=== PATIENT | female | born 2000 | race Asian ===

== ENCOUNTER 2023-02-08 10:19 | Emergency (ER) | payer BC, OTHER ==
[2023-02-08 11:35] LABS: BASOPHILS % (AUTO) 0.5 %; EOSINOPHILS # (AUTO) 0.1 10^3/uL (0.0-0.7); EOSINOPHILS % (AUTO) 2.1 %; HCT - HEMATOCRIT 39.7 % (37.0-47.0); HGB - HEMOGLOBIN 12.9 g/dL (12.0-16.0); LYMPHOCYTES % (AUTO) 15.2 %; MEAN CORPUSCULAR HEMOGLOBIN 29.5 pg (27.0-31.0); MEAN CORPUSCULAR HGB CONC 32.5 g/dL (32.0-36.0); MEAN CORPUSCULAR VOLUME 90.8 fL (81.0-99.0); MEAN PLATELET VOLUME 9.9 fL (7.9-10.8); MONOCYTES # (AUTO) 0.3 10^3/uL (0.0-1.0); MONOCYTES % (AUTO) 4.8 %; NEUTROPHILS # (AUTO) 5.1 10^3/uL (1.5-6.6); NEUTROPHILS % (AUTO) 77.1 %; PLT - PLATELET COUNT 271 10^3/uL (130-450); RED BLOOD COUNT 4.37 10^6/uL (4.20-5.40); RED CELL DISTRIBUTION WIDTH 12.7 % (12.0-15.0); WHITE BLOOD COUNT 6.7 x10^3/uL (4.8-10.8)
[2023-02-08 11:49] LABS: ALBUMIN 4.9 g/dL (3.2-5.5); ALBUMIN/GLOBULIN RATIO 1.6 (1.0-2.2); ALKALINE PHOSPHATASE 40 IU/L (42-121); ALT ALANINE AMINOTRANSFERASE 31 IU/L (10-60); AST ASPARTATE AMINOTRANSFERASE 19 IU/L (10-42); BILIRUBIN,TOTAL 0.5 mg/dL (0.2-1.0); BUN - BLOOD UREA NITROGEN 12 mg/dL (6-20); CALCIUM 9.8 mg/dL (8.5-10.3); CARBON DIOXIDE - CO2 22 mmol/L (21-32); CHLORIDE 108 mmol/L (101-111); CK- CREATINE KINASE 53 IU/L (30-223); CREATININE 0.7 mg/dL (0.6-1.3); ETOH - ETHANOL < 10.0 mg/dL; GFR - MDRD 103 (>89); GLUCOSE 130 mg/dL (74-104); LIPASE 23 U/L (11-82); POTASSIUM 3.5 mmol/L (3.5-4.5); SODIUM 139 mmol/L (135-145); TOTAL PROTEIN 7.9 g/dL (6.4-8.9)
[2023-02-08 11:51] LABS: ACETAMINOPHEN < 0.1 ug/mL; SALICYLATE < 1.5 mg/dL
--- NOTE | 2023-02-08 12:03 | ED Physician Documentation ---
PD HPI MHE - Stated complaint Stated Complaint: SI - Chief complaint Chief Complaint: MHE - History obtained from History obtained from: Patient - History of Present Illness Primary symptom: Depression Pain level max: 0 Pain level now: 0 Contributing factors: No: Substance abuse - ETOH, Substance abuse - drugs Similar symptoms before: Has not had sx before Recently seen: Not recently seen - Additional information Additional information: Patient is a 22-year-old female who presents to the emergency department stating that she has been feeling depressed and has had suicidal thoughts. She does not feel that she wants to harm herself. She states that she does not want to disappoint her parents and if she killed herself it would make her parents sad. Apparently she is going through a break-up with a boyfriend. She is not on any medications. Does not have a therapist. Denies any possibility of . Nothing makes it better or worse. Has never been hospitalized for depression or other mental health issues before. Review of Systems Constitutional: denies: Fever, Chills GI: denies: Vomiting, Diarrhea : denies: Now EGA Neurologic: denies: Generalized weakness, Focal weakness, Numbness PD PAST MEDICAL HISTORY - Past Medical History Past Medical History: No Cardiovascular: None Respiratory: None Neuro: None Endocrine/Autoimmune: None GI: None HAND MODEL: None : None HEENT: None Musculoskeletal: None Derm: None - Past Surgical History Past Surgical History: No - Present Medications Home Medications: Ambulatory Orders Medication Instructions Recorded Confirmed No Known Home Medications 02/08/23 02/08/23 - Allergies Allergies/Adverse Reactions: Allergies Allergy/AdvReac Type Severity Reaction Status Date / Time No Known Drug Allergies Allergy Verified 02/08/23 10:47 - Social History Does the pt smoke?: No Smoking Status: Never smoker Does the pt drink ETOH?: No Does the pt have substance abuse?: Yes Substance Use and Type: Marijuana PD ED PE NORMAL - Vitals Vital signs reviewed: Yes - General General: Alert and oriented X 3, No acute distress - HEENT HEENT: PERRL, Moist mucous membranes - Neck Neck: Supple, no meningeal sign - Cardiac Cardiac: RRR, Strong equal pulses - Respiratory Respiratory: No respiratory distress, Clear bilaterally - Abdomen Abdomen: Soft, Non tender, Non distended - Derm Derm: Warm and dry - Extremities Extremities: No edema - Neuro Neuro: Alert and oriented X 3 - Psych Psych: Normal mood, Normal affect Results - Vitals Vitals: Vital Signs - 24 hr 02/08/23 02/08/23 10:34 16:58 Temperature 36.4 C L Heart Rate 75 118 H Respiratory 14 20 Rate Blood Pressure 134/79 H 131/87 H O2 Saturation 97 100 Oxygen O2 Source Room air - EKG (time done) 1802 EKG releavant findings:: EKG personally interpreted by author of this note. Relevant findings are: Rate: Rate (enter#) (75) Rhythm: NSR Pauline: Normal Intervals: Normal FL QRS: Normal Ischemia: Normal ST segments - Labs Labs: Laboratory Tests 02/08/23 02/08/23 02/08/23 11:30 11:30 12:13 WBC 6.7 RBC 4.37 Hgb 12.9 Hct 39.7 MCV 90.8 MCH 29.5 MCHC 32.5 RDW 12.7 Plt Count 271 MPV 9.9 Neut # (Auto) 5.1 Lymph # (Auto) 1.0 L [place] # (Auto) 0.3 Eos # (Auto) 0.1 Baso # (Auto) 0.0 Absolute Nucleated RBC 0.00 Nucleated RBC % 0.0 Sodium 139 Potassium 3.5 Chloride 108 Carbon Dioxide 22 Anion Gap 9.0 BUN 12 Creatinine 0.7 Estimated GFR (MDRD) 103 Glucose 130 H Calcium 9.8 Magnesium 2.0 Total Bilirubin 0.5 AST 19 ALT 31 Alkaline Phosphatase 40 L Total Creatine Kinase 53 Total Protein 7.9 Albumin 4.9 Globulin 3.0 Albumin/Globulin Ratio 1.6 Lipase 23 TSH 1.24 Urine Color DARK YELLOW Urine Clarity CLEAR Urine pH 5.5 Ur Specific [place] >=1.030 H Urine Protein NEGATIVE Urine Glucose (UA) NEGATIVE Urine Ketones 15 H Urine Occult Blood TRACE-INTA Urine Nitrite NEGATIVE Urine Bilirubin NEGATIVE Urine Urobilinogen 0.2 (NORMAL) Ur Leukocyte Esterase TRACE H Urine RBC 0-5 Urine WBC 4-5 Ur Squamous Epith Cells MOD Squamous H Urine Bacteria Moderate H Ur Microscopic Review INDICATED Urine Culture Comments NOT INDICATED Urine HCG, Qual NEGATIVE Salicylates < 1.5 Urine Opiates Screen Ur Oxycodone Screen Urine Methadone Screen Ur Propoxyphene Screen Acetaminophen < 0.1 Ur Barbiturates Screen Ur Tricyclics Screen Ur Phencyclidine Scrn Ur Amphetamine Screen U Methamphetamines Scrn U Benzodiazepines Scrn Urine Cocaine Screen U Cannabinoids Screen Ethyl Alcohol < 10.0 SARS-CoV-2 (PCR) 02/08/23 02/08/23 12:13 16:15 WBC RBC Hgb Hct MCV MCH MCHC RDW Plt Count MPV Neut # (Auto) Lymph # (Auto) [place] # (Auto) Eos # (Auto) Baso # (Auto) Absolute Nucleated RBC Nucleated RBC % Sodium Potassium Chloride Carbon Dioxide Anion Gap BUN Creatinine Estimated GFR (MDRD) Glucose Calcium Magnesium Total Bilirubin AST ALT Alkaline Phosphatase Total Creatine Kinase Total Protein Albumin Globulin Albumin/Globulin Ratio Lipase TSH Urine Color Urine Clarity Urine pH Ur Specific [place] Urine Protein Urine Glucose (UA) Urine Ketones Urine Occult Blood Urine Nitrite Urine Bilirubin Urine Urobilinogen Ur Leukocyte Esterase Urine RBC Urine WBC Ur Squamous Epith Cells Urine Bacteria Ur Microscopic Review Urine Culture Comments Urine HCG, Qual Salicylates Urine Opiates Screen NEGATIVE Ur Oxycodone Screen NEGATIVE Urine Methadone Screen NEGATIVE Ur Propoxyphene Screen NEGATIVE Acetaminophen Ur Barbiturates Screen NEGATIVE Ur Tricyclics Screen NEGATIVE Ur Phencyclidine Scrn NEGATIVE Ur Amphetamine Screen NEGATIVE U Methamphetamines Scrn NEGATIVE U Benzodiazepines Scrn NEGATIVE Urine Cocaine Screen NEGATIVE U Cannabinoids Screen NEGATIVE Ethyl Alcohol SARS-CoV-2 (PCR) NOT DETECTED PD Medical Decision Making - ED course Complexity details: reviewed results, re-evaluated patient, considered differential, d/w patient, d/w business transformation consultant ED course: The patient is medically clear for psychiatric care. She was seen initially by social work, the patient would not contract for safety with social work. She did not want to engage with outpatient mental health services. She also did not want to be admitted. Therefore the DCR was dispatched. Patient placed on an involuntary hold by DCR. She is accepted to [facility], by provider at [facility]. The patient is transferred for further care. This document was made in part using voice recognition software. While efforts are made to proofread this document, sound alike and grammatical errors may occur. Departure - Departure Disposition: 65 Psych Hosp/Unit DC/Xfer Clinical Impression: Suicidal ideation Depression Qualifiers: Depression Type: unspecified Qualified Code(s): F32.A - Depression, unspecified Condition: Stable Forms: PCP List
[2023-02-08 12:05] LABS: THYROID STIMULATING HORMONE 1.24 uIU/mL (0.34-5.60)
[2023-02-08 13:03] LABS: MUDS CUTOFF CONCENTRATIONS CUTOFF CONC BELOW:
[2023-02-08 13:20] LABS: GLUCOSE, URINE (UA) NEGATIVE (NEGATIVE); KETONES,URINE (UA) 15 mg/dL (NEGATIVE); LEUKOCYTE ESTERASE, URINE TRACE (NEGATIVE); NITRITE,URINE NEGATIVE (NEGATIVE); OCCULT BLOOD,URINE TRACE-INTA (NEGATIVE); PH,URINE 5.5 PH (5.0-7.5); PROTEIN,URINE NEGATIVE (NEGATIVE); UROBILINOGEN,URINE 0.2 (NORMAL) E.U./dL (NORMAL)
[2023-02-08 13:26] LABS: AMPHETAMINE SCREEN,URINE NEGATIVE (NEGATIVE); BARBITURATE SCREEN,UR NEGATIVE (NEGATIVE); BENZODIAZEPINES SCREEN, URINE NEGATIVE (NEGATIVE); COCAINE SCREEN URINE NEGATIVE (NEGATIVE); METHADONE SCREEN, URINE NEGATIVE (NEGATIVE); METHAMPHETAMINES SCREEN, URINE NEGATIVE (NEGATIVE); OPIATE SCREEN, URINE NEGATIVE (NEGATIVE); OXYCODONE SCREEN, URINE NEGATIVE (NEGATIVE); PROPOXYPHENE SCREEN, URINE NEGATIVE (NEGATIVE); THC CANNABINOID SCREEN, URINE NEGATIVE (NEGATIVE); TRICYCLIC ANTIDEPRESSANT,URINE NEGATIVE (NEGATIVE)
[2023-02-08 13:27] LABS: BILIRUBIN,URINE NEGATIVE (NEGATIVE); CLARITY,URINE CLEAR (CLEAR); HCG UR QUAL NEGATIVE; ICTOTEST,URINE NEGATIVE
[2023-02-08 13:35] LABS: BACTERIA,URINE Moderate /HPF (None Seen); RBC,URINE 0-5 /HPF (0-5); SQUAMOUS EPITHELIAL CELL,UR MOD Squamous (<= Few)
[2023-02-08] MEDS ORDERED: OLANZapine ODT 5 MG TABLET TL STA (16:34)
[2023-02-08 16:59] VITALS: BP 131/87; O2SAT 100
== END 2023-02-08 19:20 ==
LOC: ED 10:19
DX: R45.851 Suicidal ideations (principal); F32.A Depression, unspecified; Z20.822 Contact with and (suspected) exposure to COVID-19
CPT/HCPCS: 36415; 80053; 80306; 80307; 80320; 80329; 81001; 81003; 81025; 82550; 83690; 83735; 84443; 85025; 87086; 93005; 99283; 99285

== ENCOUNTER 2023-08-17 11:24 | Emergency (ER) | payer BC ==
--- NOTE | 2023-08-17 11:51 | ED Physician Documentation ---
PD HPI FEMALE - Stated complaint Stated Complaint: - History obtained from History obtained from: Patient (using zweitgeist interpreter deaf tablet) - Additional information Additional information: About 1 week vaginal itchiness and yellow/greeen discharge after protected sex wth condom. 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 : None HEENT: None Musculoskeletal: None Derm: None - Past Surgical History Past Surgical History: No - Present Medications Home Medications: Ambulatory Orders Medication Instructions Recorded Confirmed Fluconazole 150 mg PO ONCE #1 tablet 08/17/23 Fluoxetine HCl [Prozac] 20 mg PO DAILY 08/17/23 08/17/23 metroNIDAZOLE [Flagyl] 500 mg PO BID 7 Days #14 tablet 08/17/23 - Allergies Allergies/Adverse Reactions: Allergies Allergy/AdvReac Type Severity Reaction Status Date / Time No Known Drug Allergies Allergy Verified 08/17/23 11:55 - Social History Does the pt smoke?: No Smoking Status: Never smoker Does the pt drink ETOH?: No Does the pt have substance abuse?: Yes PD ED PE NORMAL - Vitals Vital signs reviewed: Yes - General General: Alert and oriented X 3, No acute distress - Abdomen Abdomen: Non tender - Female Female : Diamond Finishing Supervisor present (Ashley Kamraa RN), Other (Yellow dischg in vault. No CMT. External nl.) - Psych Psych: Normal mood, Normal affect Results - Vitals Vitals: Vital Signs - 24 hr 08/17/23 11:46 Temperature 36.3 C L Heart Rate 82 Respiratory 16 Rate Blood Pressure 111/67 O2 Saturation 98 Oxygen O2 Source Room air - Labs Labs: Microbiology 08/17/23 12:25 Wet Prep - Final Vaginal Laboratory Tests 08/17/23 08/17/23 12:25 12:25 C. glabrata (PCR) NEGATIVE C. krusei (PCR) NEGATIVE Brynn species DNA POSITIVE A Chlam trachomat DNA PCR NEGATIVE N.gonorrhoeae DNA (PCR) NEGATIVE T. vaginalis (PCR) NEGATIVE TNP Bact Vaginosis (PCR) NEGATIVE PD Medical Decision Making - ED course ED course: 23-year-old woman with probably combination of BV and yeast treated with Flagyl and Diflucan. Departure - Departure Disposition: 01 Home, Self Care Clinical Impression: Bacterial vaginitis, Vaginal candidiasis Condition: Good Record reviewed to determine appropriate education?: Yes Instructions: ED Vaginosis Bacterial, ED Vaginal Infec Fungal Brynn Follow-Up: [facility] [Provider Group] Prescriptions: metroNIDAZOLE [Flagyl] 500 mg PO BID 7 Days #14 tablet Fluconazole 150 mg PO ONCE #1 tablet Comments: You have some yeast and what is called bacterial vaginosis. Neither of these are sexually transmitted diseases. There is a test for STD is pending and we will call you if positive. For Pap smear and HPV testing please follow-up with our women's clinic. The number is on this form. Forms: PCP List Discharge Date/Time: 08/17/23 13:14
[2023-08-17 11:57] VITALS: BP 111/67; O2SAT 98
[2023-08-17 16:07] LABS: BACTERIAL VAGINOSIS DNA NEGATIVE (NEGATIVE); CANDIDA GLABRATA DNA NEGATIVE (NEGATIVE); CANDIDA GROUP DNA POSITIVE (NEGATIVE); CANDIDA KRUSEI DNA NEGATIVE (NEGATIVE); TRICHOMONAS VAGINALIS DNA NEGATIVE (NEGATIVE)
[2023-08-17 19:11] LABS: CHLAMYDIA TRACHOMATIS DNA NEGATIVE (NEGATIVE); NEISSERIA GONORRHOEAE DNA NEGATIVE (NEGATIVE)
== END 2023-08-17 13:14 | disposition home or self-care (01) ==
LOC: ED 11:24
DX: N76.0 Acute vaginitis (principal); B37.31 Acute candidiasis of vulva and vagina
CPT/HCPCS: 81514; 87210; 87491; 87591; 87661; 99283

== ENCOUNTER 2023-08-30 12:05 | Emergency (ER) | payer BC ==
[2023-08-30 12:30] VITALS: BP 104/67; O2SAT 97
--- NOTE | 2023-08-30 12:37 | ED Physician Documentation ---
History of Present Illness - Stated complaint Stated Complaint: - Chief complaint Chief Complaint: General - History obtained from History obtained from: Patient - History of Present Illness Pain level max: 0 Pain level now: 0 - Additonal information Additional information: Patient is a 23-year-old female who was seen here her on August 16 for vaginal itching and discharge. Had a pelvic examination at that time that was negative for STD testing but positive for Brynn. She was treated with Diflucan and Flagyl. She states that her symptoms improved but after she stopped the medication the symptoms returned about 2 days ago. She states that the discharge currently is clear. She states that there is itching. She is not hav ing abdominal pain or back pain. No STD exposure that she is aware of. Nothing makes it better or worse. No fevers. No chills. No cough. No congestion. Denies any possibility of . No dysuria or urinary frequency. Review of Systems Constitutional: denies: Fever, Chills Nose: denies: Rhinorrhea / runny nose, Congestion Respiratory: denies: Cough GI: denies: Nausea, Vomiting, Diarrhea Skin: denies: Rash Musculoskeletal: denies: Neck pain, Back pain Neurologic: denies: Headache PD PAST MEDICAL HISTORY - Past Medical History Past Medical History: Yes Cardiovascular: None Respiratory: None Neuro: None Endocrine/Autoimmune: None GI: None BOW MAKER: None : None HEENT: None Psych: Depression Musculoskeletal: None Derm: None - Past Surgical History Past Surgical History: No - Present Medications Home Medications: Ambulatory Orders Medication Instructions Recorded Confirmed Fluoxetine HCl [Prozac] 20 mg PO DAILY 08/17/23 08/30/23 Fluconazole 150 mg PO DAILY #2 tab 08/30/23 metroNIDAZOLE [Flagyl] 500 mg PO BID 7 Days #14 tablet 08/30/23 - Allergies Allergies/Adverse Reactions: Allergies Allergy/AdvReac Type Severity Reaction Status Date / Time No Known Drug Allergies Allergy Verified 08/30/23 12:19 - Social History Does the pt smoke?: No Smoking Status: Never smoker Does the pt drink ETOH?: Yes Does the pt have substance abuse?: No - Immunizations Immunizations are current?: Yes - POLST Patient has POLST: No PD ED PE NORMAL - Vitals Vital signs reviewed: Yes - General General: Alert and oriented X 3, No acute distress - HEENT HEENT: Moist mucous membranes - Neck Neck: Supple, no meningeal sign - Cardiac Cardiac: RRR, Strong equal pulses - Respiratory Respiratory: No respiratory distress, Clear bilaterally - Abdomen Abdomen: Soft, Non tender, Non distended - Female Female : Pt declined (patient does not want a pelvic exam today, would like to self swab) - Back Back: No CVA TTP, No spinal TTP - Derm Derm: Warm and dry - Extremities Extremities: No edema, No calf tenderness / cord - Neuro Neuro: Alert and oriented X 3 - Psych Psych: Normal mood, Normal affect Results - Vitals Vitals: Vital Signs - 24 hr 08/30/23 12:21 Temperature 36.4 C L Heart Rate 77 Respiratory 16 Rate Blood Pressure 104/67 O2 Saturation 97 Oxygen O2 Source Room air - Labs Labs: Laboratory Tests 08/30/23 12:46 Urine Color YELLOW Urine Clarity CLEAR Urine pH 6.0 Ur Specific [place] 1.025 Urine Protein NEGATIVE Urine Glucose (UA) NEGATIVE Urine Ketones NEGATIVE Urine Occult Blood SMALL H Urine Nitrite NEGATIVE Urine Bilirubin NEGATIVE Urine Urobilinogen 0.2 (NORMAL) Ur Leukocyte Esterase NEGATIVE Urine RBC 0-5 Urine WBC 0-3 Ur Squamous Epith Cells FEW Squamous Urine Bacteria Few Urine Mucus Few Strands Ur Microscopic Review INDICATED Urine Culture Comments NOT INDICATED Urine HCG, Qual NEGATIVE PD Medical Decision Making - ED course Complexity details: reviewed results, re-evaluated patient, considered differential, d/w patient ED course: 23-year-old female with what appears to be likely recurrent bacterial vaginitis/candidal infection. Refuses a pelvic examination here. She did perform another self swab. We will treat presumptively with 2 separate doses of Diflucan and Flagyl. Will have her follow-up with gynecology for further care. Patient is well-appearing, nontoxic. Afebrile. Abdomen is soft, nontender nondistended on serial exam. Patient denies any STD exposure. Gonorrhea and Chlamydia testing were sent. Patient counseled regarding signs and symptoms for which I believe and urgent re-evaluation would be necessary. Patient with good understanding of and agreement to plan and is comfortable going home at this time This document was made in part using voice recognition software. While efforts are made to proofread this document, sound alike and grammatical errors may occur. Departure - Departure Disposition: 01 Home, Self Care Clinical Impression: Bacterial vaginitis, Vaginal candidiasis Condition: Good Instructions: ED Vaginosis Bacterial, ED Vaginal Infec Fungal Brynn Follow-Up: your,doctor in 1 week [Other] [facility] [Provider Group] Prescriptions: metroNIDAZOLE [Flagyl] 500 mg PO BID 7 Days #14 tablet Fluconazole 150 mg PO DAILY #2 tab Comments: Your prescriptions were sent to [facility] in [place]. Please follow-up with your doctor for further care. Please take the medications as prescribed. The fluconazole you will take today and then take another dose in 3 days. Forms: PCP List Discharge Date/Time: 08/30/23 13:12
[2023-08-30 12:57] LABS: BILIRUBIN,URINE NEGATIVE (NEGATIVE); GLUCOSE, URINE (UA) NEGATIVE (NEGATIVE); KETONES,URINE (UA) NEGATIVE (NEGATIVE); LEUKOCYTE ESTERASE, URINE NEGATIVE (NEGATIVE); NITRITE,URINE NEGATIVE (NEGATIVE); OCCULT BLOOD,URINE SMALL (NEGATIVE); PROTEIN,URINE NEGATIVE (NEGATIVE); UROBILINOGEN,URINE 0.2 (NORMAL) E.U./dL (NORMAL)
[2023-08-30 13:01] LABS: CLARITY,URINE CLEAR (CLEAR)
[2023-08-30 13:02] LABS: HCG UR QUAL NEGATIVE
[2023-08-30 13:21] LABS: BACTERIA,URINE Few /HPF (None Seen); MUCUS,URINE Few Strands; RBC,URINE 0-5 /HPF (0-5); SQUAMOUS EPITHELIAL CELL,UR FEW Squamous (<= Few); WBC,URINE 0-3 /HPF (0-5)
[2023-08-30 15:10] LABS: CHLAMYDIA TRACHOMATIS DNA NEGATIVE (NEGATIVE); NEISSERIA GONORRHOEAE DNA NEGATIVE (NEGATIVE)
[2023-08-30 15:11] LABS: BACTERIAL VAGINOSIS DNA NEGATIVE (NEGATIVE); CANDIDA GLABRATA DNA NEGATIVE (NEGATIVE); CANDIDA GROUP DNA NEGATIVE (NEGATIVE); CANDIDA KRUSEI DNA NEGATIVE (NEGATIVE); TRICHOMONAS VAGINALIS DNA NEGATIVE (NEGATIVE)
== END 2023-08-30 13:12 | disposition home or self-care (01) ==
LOC: ED 12:05
DX: N76.0 Acute vaginitis (principal); B37.31 Acute candidiasis of vulva and vagina
CPT/HCPCS: 81001; 81003; 81025; 81514; 87086; 87491; 87591; 87661; 99283

== ENCOUNTER 2023-09-17 14:09 | Outpatient (CLI) | payer BC ==
--- NOTE | 2023-09-17 19:25 | Ultrasound Report ---
PROCEDURE: Pelvic w/Transvaginal INDICATIONS: PELVIC PAIN TECHNIQUE: Transabdominal/transvaginal ultrasound of the pelvis was obtained. Endovaginal scanning wa s necessary due to incomplete visualization of the adnexal and endometrial structures by transabdomin al scanning. COMPARISON: None. FINDINGS: Uterine size: Uterus measures 6.9 x 3.6 x 4.2 cm, and is anteverted. Myometrium: The myometrium is heterogenous Endometrium: The endometrium measures 6 mm in combined thickness. Right ovary: The right ovary measures 1.8 x 1.4 x 1.4 cm. Calculated ovarian volume 2.0 cc. Left ovary: The left ovary measures 2.0 x 2.8 x 1.0 cm. Calculated ovarian volume 0.8 cc. Other: No pathologic free abdominal or pelvic fluid. IMPRESSION: Unremarkable ultrasound of the pelvis Reviewed by: Mark Moreland MD on 09/17/2023 6:24 PM KO Approved by: Mark Moreland MD on 09/17/2023 6:24 PM AKDT Station ID: [id number]
== END 2023-09-17 14:10 | disposition home or self-care (01) ==
LOC: DI 14:09
PROVIDERS: ATTEND Obstetrics & Gynecology
DX: R10.2 Pelvic and perineal pain (principal)

== ENCOUNTER 2023-10-20 08:00 | Outpatient (CLI) | payer BC ==
[2023-10-20 19:58] LABS: BACTERIAL VAGINOSIS DNA NEGATIVE (NEGATIVE); CANDIDA GLABRATA DNA NEGATIVE (NEGATIVE); CANDIDA GROUP DNA POSITIVE (NEGATIVE); CANDIDA KRUSEI DNA NEGATIVE (NEGATIVE); TRICHOMONAS VAGINALIS DNA NEGATIVE (NEGATIVE)
[2023-10-20 21:18] LABS: CHLAMYDIA TRACHOMATIS DNA NEGATIVE (NEGATIVE); NEISSERIA GONORRHOEAE DNA NEGATIVE (NEGATIVE)
== END 2023-10-20 23:59 | disposition home or self-care (01) ==
LOC: LAB.WC 08:00
PROVIDERS: ATTEND Obstetrics & Gynecology
DX: N89.8 Other specified noninflammatory disorders of vagina (principal)
CPT/HCPCS: 81514; 87491; 87591; 87661

== ENCOUNTER 2023-11-16 15:59 | Emergency (ER) | payer BC ==
[2023-11-16 16:10] VITALS: BP 109/74; O2SAT 100
[2023-11-16 16:25] LABS: BASOPHILS % (AUTO) 0.4 %; EOSINOPHILS # (AUTO) 0.3 10^3/uL (0.0-0.7); EOSINOPHILS % (AUTO) 4.9 %; HCT - HEMATOCRIT 39.1 % (37.0-47.0); HGB - HEMOGLOBIN 12.6 g/dL (12.0-16.0); LYMPHOCYTES # (AUTO) 1.4 10^3/uL (1.5-3.5); LYMPHOCYTES % (AUTO) 25.7 %; MEAN CORPUSCULAR HEMOGLOBIN 29.4 pg (27.0-31.0); MEAN CORPUSCULAR HGB CONC 32.2 g/dL (32.0-36.0); MEAN CORPUSCULAR VOLUME 91.4 fL (81.0-99.0); MEAN PLATELET VOLUME 9.7 fL (7.9-10.8); MONOCYTES # (AUTO) 0.4 10^3/uL (0.0-1.0); MONOCYTES % (AUTO) 7.2 %; NEUTROPHILS # (AUTO) 3.4 10^3/uL (1.5-6.6); NEUTROPHILS % (AUTO) 61.6 %; PLT - PLATELET COUNT 284 10^3/uL (130-450); RED BLOOD COUNT 4.28 10^6/uL (4.20-5.40); RED CELL DISTRIBUTION WIDTH 12.9 % (12.0-15.0); WHITE BLOOD COUNT 5.6 x10^3/uL (4.8-10.8)
[2023-11-16 16:31] LABS: PARTIAL THROMBOPLASTIN TIME 26.8 secs (24.9-33.3)
[2023-11-16 16:36] LABS: INR 1.1 (0.8-1.2); PT - PROTHROMBIN TIME 12.5 secs (9.9-12.6)
[2023-11-16 16:42] LABS: ALBUMIN 4.5 g/dL (3.2-5.5); ALBUMIN/GLOBULIN RATIO 1.5 (1.0-2.2); BILIRUBIN,TOTAL 0.3 mg/dL (0.2-1.0); CALCIUM 9.5 mg/dL (8.5-10.3); CREATININE 0.7 mg/dL (0.6-1.3); POTASSIUM 3.5 mmol/L (3.5-4.5); TOTAL PROTEIN 7.6 g/dL (6.4-8.9)
--- NOTE | 2023-11-16 16:59 | ED Physician Documentation ---
History of Present Illness - Stated complaint Stated Complaint: BRUISES - Chief complaint Chief Complaint: General - History obtained from History obtained from: Patient - History of Present Illness Pain level max: 0 Pain level now: 0 - Additonal information Additional information: Patient is a 23-year-old female who presents to the emergency department stating that she has bruise easily for her whole life and has noticed that there are bruises on her legs over the past few months. She states she does not know where the bruises come from. Occasionally gets bruises on her back and sides as well. She has never been seen by a doctor for this. She denies any easy bleeding. Denies any extended menstrual periods. Denies any bleeding with brushing her teeth. 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 : None HEENT: None Psych: Depression Musculoskeletal: None Derm: None - Past Surgical History Past Surgical History: No - Present Medications Home Medications: Ambulatory Orders Medication Instructions Recorded Confirmed Levonorgestrel/Ethin.estradiol 28 tab PO DAILY 11/16/23 [Kurvelo-28 Tablet] - Allergies Allergies/Adverse Reactions: Allergies Allergy/AdvReac Type Severity Reaction Status Date / Time No Known Drug Allergies Allergy Verified 11/16/23 16:09 - Social History Does the pt smoke?: No Smoking Status: Never smoker Does the pt drink ETOH?: Yes Does the pt have substance abuse?: No - Immunizations Immunizations are current?: Yes - POLST Patient has POLST: No PD ED PE NORMAL - Vitals Vital signs reviewed: Yes - General General: Alert and oriented X 3, No acute distress - Cardiac Cardiac: RRR - Respiratory Respiratory: No respiratory distress, Clear bilaterally - Abdomen Abdomen: Soft, Non tender, Non distended - Derm Derm: Warm and dry - Extremities Extremities: Other (Small healing ecchymoses to the bilateral shins.) - Neuro Neuro: Alert and oriented X 3 Results - Vitals Vitals: Vital Signs - 24 hr 11/16/23 16:02 Temperature 36.4 C L Heart Rate 74 Respiratory 16 Rate Blood Pressure 109/74 O2 Saturation 100 Oxygen O2 Source Room air - Labs Labs: Laboratory Tests 11/16/23 11/16/23 11/16/23 16:19 16:19 16:19 WBC 5.6 RBC 4.28 Hgb 12.6 Hct 39.1 MCV 91.4 MCH 29.4 MCHC 32.2 RDW 12.9 Plt Count 284 MPV 9.7 Neut # (Auto) 3.4 Lymph # (Auto) 1.4 [place] # (Auto) 0.4 Eos # (Auto) 0.3 Baso # (Auto) 0.0 Absolute Nucleated RBC 0.00 Nucleated RBC % 0.0 PT 12.5 INR 1.1 APTT 26.8 Sodium 138 Potassium 3.5 Chloride 108 Carbon Dioxide 23 Anion Gap 7.0 BUN 10 Creatinine 0.7 Estimated GFR (MDRD) 102 Glucose 105 H Calcium 9.5 Total Bilirubin 0.3 AST 14 ALT 18 Alkaline Phosphatase 50 Total Protein 7.6 Albumin 4.5 Globulin 3.1 Albumin/Globulin Ratio 1.5 PD Medical Decision Making - ED course Complexity details: considered differential, d/w patient ED course: Patient complains of easy bruising for her entire life, does not recall how she obtained the bruises on her legs. Do not appear abnormal. No evidence of petechiae. No abnormalities on laboratory testing. No emergency medical condition at this time. Recommend that she follow-up with her doctor for further evaluation. Patient counseled regarding signs and symptoms for which I believe and urgent re-evaluation would be necessary. Patient with good understanding of and agreement to plan and is comfortable going home at this time This document was made in part using voice recognition software. While efforts are made to proofread this document, sound alike and grammatical errors may occur. Departure - Departure Disposition: 01 Home, Self Care Clinical Impression: Bruising Condition: Good Instructions: ED Contusion Soft Tissue Follow-Up: [facility] [Provider Group] [facility] [Provider Group] Primary[facility] [place] [Provider Group] [facility] [Provider Group] Comments: As we discussed all of your clotting factors and blood counts are normal. Your platelets are normal, which help in clotting. Your coagulation studies are normal, and your chemistries including liver function tests are normal. If you have further concerns, would recommend you follow-up with a primary care provider for further testing. Forms: PCP List Discharge Date/Time: 11/16/23 17:06
== END 2023-11-16 17:06 | disposition home or self-care (01) ==
LOC: ED 15:59
DX: R23.3 Spontaneous ecchymoses (principal)
CPT/HCPCS: 36415; 80053; 85025; 85610; 85730; 99283

== ENCOUNTER 2023-12-24 08:00 | Outpatient (CLI) | payer BC ==
[2023-12-27 11:52] LABS: BACTERIAL VAGINOSIS DNA NEGATIVE (NEGATIVE); CANDIDA GLABRATA DNA NEGATIVE (NEGATIVE); CANDIDA GROUP DNA NEGATIVE (NEGATIVE); CANDIDA KRUSEI DNA NEGATIVE (NEGATIVE); TRICHOMONAS VAGINALIS DNA NEGATIVE (NEGATIVE)
== END 2023-12-24 23:59 | disposition home or self-care (01) ==
LOC: LAB.WC 08:00
PROVIDERS: ATTEND Obstetrics & Gynecology
DX: L29.8 Other pruritus (principal)
CPT/HCPCS: 81514

== ENCOUNTER 2024-02-16 16:08 | Emergency (ER) | payer BC ==
[2024-02-16 16:23] VITALS: O2SAT 98
--- NOTE | 2024-02-16 16:49 | ED Physician Documentation ---
<Rosita Toure Inez - Last Filed: 02/16/24 16:46> History of Present Illness - Stated complaint Stated Complaint: R WRIST INJ - Chief complaint Chief Complaint: Ext Problem - Additonal information Additional information: Patient is a 23-year-old male presenting to the emergency department with right wrist pain symptoms have been going on for about a month now. 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: No - Immunizations Immunizations are current?: Yes - POLST Patient has POLST: No Departure - Departure Disposition: 01 Home, Self Care Clinical Impression: Fracture of ulnar styloid Qualifiers: Encounter type: initial encounter Fracture type: closed Fracture alignment: nondisplaced Laterality: right Qualified Code(s): S52.614A - Nondisplaced fracture of right ulna styloid process, initial encounter for closed fracture Condition: Good Instructions: ED Fx [place] Upper Ext Incom Follow-Up: [facility] [Provider Group] Comments: You do have a minor fracture of your wrist, of the ulnar styloid. And it is probably not healing well since it has never been immobilized. We have placed you in a fiberglass splint, keep it on and dry and follow-up with our orthopedic surgeons, call tomorrow for an appointment in about a week. Return for new or worsening symptoms. Tylenol and/or ibuprofen as needed for pain. Forms: PCP List, Activity restrictions <Alex Butcher - Last Filed: 02/16/24 16:52> History of Present Illness - Additonal information Additional information: She fell 2 months ago and has persistent pain on the ulnar side of the left wrist. It hurts most if she is picking something up arms all along yeah here to PD ED PE NORMAL - Vitals Vital signs reviewed: Yes - General General: Alert and oriented X 3, No acute distress - Extremities Extremities: Other (Mild tenderness over the distal ulna with good range of motion. No deformity. Normal distal neurovascular function.) - Neuro Neuro: Alert and oriented X 3 Results - Vitals Vitals: Vital Signs - 24 hr 02/16/24 16:12 Temperature 36.5 C Heart Rate 80 Respiratory 18 Rate Blood Pressure 111/69 O2 Saturation 98 Oxygen O2 Source Room air - Rads (name of study) Right wrist x-ray demonstrates an ulnar styloid fracture Relevant Findings:: EMP independent interpretation of test Procedures - Splint (location) - Minor r WRIST Splint applied by: Tech Type of splint: Fiberglass, Short arm, Ulnar gutter Other: Patient tolerated well, No complications, Neurovascular intact Departure - Departure Record reviewed to determine appropriate education?: Yes
[2024-02-16 17:16] VITALS: BP 128/68
--- NOTE | 2024-02-16 17:23 | XRAY Report ---
Wrist 3+V RT HISTORY: 23 years of age, pain/trauma TECHNIQUE: Wrist 3+V RT COMPARISON: None. FINDINGS/IMPRESSION: Minimally displaced ulnar styloid fracture, favoring acute. Sclerosis with cortical irregularity at t he scaphoid waist on the scaphoid view, concerning for nondisplaced fracture. Recommend further evalu ation with CT or MRI. Joint spaces are well-maintained. Reviewed by: Louisa Blas MD on 02/16/2024 5:22 PM PDT Approved by: Louisa Blas MD on 02/16/2024 5:22 PM PDT Station ID: [id number]
== END 2024-02-16 17:09 | disposition home or self-care (01) ==
LOC: ED 16:08
DX: S52.614A Nondisplaced fracture of right ulna styloid process, initial encounter for closed fracture (principal); W19.XXXA Unspecified fall, initial encounter
CPT/HCPCS: 29125; 99283

== ENCOUNTER 2024-02-18 08:00 | Outpatient (CLI) | payer BC ==
[2024-02-18 23:41] LABS: CHLAMYDIA TRACHOMATIS DNA NEGATIVE (NEGATIVE); NEISSERIA GONORRHOEAE DNA NEGATIVE (NEGATIVE)
[2024-02-19 00:30] LABS: BACTERIAL VAGINOSIS DNA POSITIVE (NEGATIVE); CANDIDA GLABRATA DNA NEGATIVE (NEGATIVE); CANDIDA GROUP DNA POSITIVE (NEGATIVE); CANDIDA KRUSEI DNA NEGATIVE (NEGATIVE); TRICHOMONAS VAGINALIS DNA NEGATIVE (NEGATIVE)
== END 2024-02-18 23:59 | disposition home or self-care (01) ==
LOC: LAB.N 08:00
PROVIDERS: ATTEND Physician Assistant Medical
DX: N89.8 Other specified noninflammatory disorders of vagina (principal)
CPT/HCPCS: 81514; 87491; 87591; 87661